=== PATIENT | male | born 1935 | race Caucasian/White ===

== ENCOUNTER → 2016-08-07 | Outpatient (CLI) | payer MEDICARE | END | disposition home or self-care (01) | LOC: PCVCCLINIC 11:30 | PROVIDERS: ATTEND Internal Medicine | DX: I25.10 Atherosclerotic heart disease of native coronary artery without angina pectoris (principal); I65.29 Occlusion and stenosis of unspecified carotid artery; E78.5 Hyperlipidemia, unspecified; I47.1 Supraventricular tachycardia; C73 Malignant neoplasm of thyroid gland; Z95.1 Presence of aortocoronary bypass graft | CPT/HCPCS: 80061; 93005; G0463 ==

== ENCOUNTER → 2017-11-05 | Outpatient (CLI) | payer MEDICARE | END | disposition home or self-care (01) | LOC: PCVCCLINIC 14:25 | DX: I25.10 Atherosclerotic heart disease of native coronary artery without angina pectoris (principal); I65.23 Occlusion and stenosis of bilateral carotid arteries; E78.5 Hyperlipidemia, unspecified; C73 Malignant neoplasm of thyroid gland; Z95.1 Presence of aortocoronary bypass graft; Z87.891 Personal history of nicotine dependence; Z79.899 Other long term (current) drug therapy; Z79.82 Long term (current) use of aspirin | CPT/HCPCS: 80061; 93005; G0463 ==

== ENCOUNTER → 2018-02-10 | Outpatient (CLI) | payer MEDICARE | END | disposition home or self-care (01) | LOC: PCVCCLINIC 15:05 | DX: I25.10 Atherosclerotic heart disease of native coronary artery without angina pectoris (principal); I65.23 Occlusion and stenosis of bilateral carotid arteries; E78.5 Hyperlipidemia, unspecified; C73 Malignant neoplasm of thyroid gland; Z95.1 Presence of aortocoronary bypass graft; Z79.82 Long term (current) use of aspirin; Z79.899 Other long term (current) drug therapy | CPT/HCPCS: 93005; G0463 ==

== ENCOUNTER → 2018-09-16 | Outpatient (CLI) | payer MEDICARE ==
--- NOTE | 2018-09-17 08:54 | PCVCIMAG ---
APPROVED REPORT Study performed: 09/16/2018 16:03:55 EXAM: Comprehensive 2D, Doppler, and color-flow Echocardiogram Patient [facility]: [facility] BSA: 1.93 HR: 53 bpmBP: 132/66 mmHg Rhythm: Bradycardia Other Information Study Quality: Adequate Risk Factors: Cardiac Risk Factors: Hyperlipidemia, HTN Indications Pre-Op CAD Cardiomyopathy Hx of CABG 2D Dimensions IVSd: 6.61 (7-11mm)LVOT Diam: 21.84 (18-24mm) LVDd: 46.14 mm PWd: 7.38 (7-11mm)Ascending Ao: 33.59 (22-36mm) LVDs: 23.83 (25-40mm) Left Atrium: 36.28 (27-40mm) Aortic Root: 26.31 mm LV Single Plane 4CH: 60.82 % LV Single Plane 2CH: 53.31 % Biplane EF: 57.2 % Volumes Left Atrial Volume (Systole) Single Plane 4CH: 34.99 mLSingle Plane 2CH: 58.11 mL Biplane LA Volume: 47.00 mLLA ESV Index: 24.00 mL/m2 Aortic Valve AoV Peak Clifford.: 2.16 m/s AO Peak Gr.: 18.59 mmHgLVOT Max P.11 mmHg LVOT Max V: 0.88 m/s ADRIANA Vmax: 1.53 cm2 Mitral Valve E/A Ratio: 1.0 MV Decel. Time: 235.56 ms MV E Max Clifford.: 0.64 m/s MV A Clifford.: 0.66 m/s MV PHT: 57.57 ms MVA (PHT): 3.82 cm2 TDI E/Lateral E': 5.33E/Medial E': 7.11 Medial E' Clifford.: 0.09 m/s Lateral E' Clifford.: 0.12 m/s Pulmonary Valve PV Peak Clifford.: 1.23 m/sPV Peak Gr.: 6.06 mmHg Pulmonary Vein P Vein S: 0.43 m/sP Vein A: 0.32 m/s P Vein D: 0.39 m/sP Vein A Dur.: 148.8 msec P Vein S/D Ratio: 1.10 Tricuspid Valve TR Peak Clifford.: 2.07 m/s TR Peak Gr.: 17.08 mmHg TV Vmax: 0.73 m/sPA Pressure: 25.00 mmHg Left Ventricle The left ventricle is normal size. There is normal LV segmental wall motion. There is normal left ventricular wall thickness. Left ventricular systolic function is normal. The left ventricular ejection fraction is within the normal range. LVEF is 55-60%. The left ventricular diastolic function is normal. Right Ventricle The right ventricle is normal size. The right ventricular systolic function is normal. Atria The left atrium size is normal. Right atrium is moderately dilated. Aortic Valve Aortic valve is trileaflet, mild sclerosis. No aortic regurgitation is present. There is no aortic valvular stenosis. Mitral Valve The mitral valve is normal in structure. Trace to mild mitral regurgitation. No evidence of mitral valve stenosis. Tricuspid Valve The tricuspid valve is normal in structure. Mild to moderate tricuspid regurgitation with a PA pressure of 25 mmHg. Pulmonic Valve The pulmonary valve is normal in structure. There is no pulmonic valvular regurgitation. Great Vessels The aortic root is normal in size. The ascending aorta is normal in size. Aortic arch is not well visualized. IVC is normal in size and collapses >50% with inspiration. Pericardium There is no pericardial effusion. There is no pleural effusion. <Conclusion> Left ventricular systolic function is normal. There is normal LV segmental wall motion. LVEF is 55-60%. Normal diastolic function Right atrium is moderately dilated. Aortic valve is trileaflet, mild sclerosis. No aortic regurgitation or stenosis The mitral valve is normal in structure. Trace to mild mitral regurgitation. Mild to moderate tricuspid regurgitation with a pulmonary artery pressure of 25 mmHg. There is no pericardial effusion.
== END | disposition home or self-care (01) ==
LOC: PCVCIMAG 15:53
PROVIDERS: ATTEND Internal Medicine
DX: I07.1 Rheumatic tricuspid insufficiency (principal); I25.10 Atherosclerotic heart disease of native coronary artery without angina pectoris; I42.9 Cardiomyopathy, unspecified; Z95.1 Presence of aortocoronary bypass graft
CPT/HCPCS: 93306

== ENCOUNTER → 2018-09-18 | Outpatient (CLI) | payer MEDICARE ==
--- NOTE | 2018-09-18 13:18 | PCVCIMAG ---
APPROVED REPORT Indications Stenosis Pre-surgery Doppler Spectral Velocity Analysis PSV / EDVPSV / EDV ECA (R) 96 / 0 cm/sECA (L) 128 / 4 cm/s dICA (R) 64 / 18 cm/sdICA (L) 76 / 23 cm/s Sarita (R) 72 / 17 cm/smICA (L) 98 / 21 cm/s pICA (R) 74 / 15 cm/spICA (L) 72 / 15 cm/s Bulb (R) 79 / 11 cm/sBulb (L) 117 / 19 cm/s dCCA (R) 114 / 10 cm/sdCCA (L) 135 / 25 cm/s mCCA (R) 121 / 14 cm/smCCA (L) 138 / 19 cm/s Vert (R) 58 / 10 cm/sVert (L) 65 / 12 cm/s ICA/CCA 0.65ICA/CCA 0.73 Basic Measurements Blood Pressure: Pulses: Right Left RightLeft Brachial(Sitting) 108/89bxDi711/56mmHgTemporal Real Time B-Mode Imaging Vert. (R)AntegradeVert. (L)Antegrade Findings The right carotid bulb has moderate plaque. The right proximal internal carotid artery shows <40% stenosis. The right common carotid artery shows no significant stenosis. The right external carotid artery shows no significant stenosis. The left carotid bulb has moderately severe calcified plaque. The left proximal internal carotid artery shows <40% stenosis. The left common carotid artery shows no significant stenosis. The left external carotid artery shows no significant stenosis. Conclusion 1. Right internal carotid artery stenosis (<40%) 2. Left internal carotid artery stenosis (<40%) 3. Antegrade vertebral flow Similar to January 2016
== END | disposition home or self-care (01) ==
LOC: PCVCIMAG 12:37
PROVIDERS: ATTEND Internal Medicine
DX: I65.23 Occlusion and stenosis of bilateral carotid arteries (principal); I25.10 Atherosclerotic heart disease of native coronary artery without angina pectoris; E78.5 Hyperlipidemia, unspecified; C73 Malignant neoplasm of thyroid gland; Z95.1 Presence of aortocoronary bypass graft; Z79.82 Long term (current) use of aspirin; Z87.891 Personal history of nicotine dependence
CPT/HCPCS: 36415; 80061; 93005; 93880; G0463